=== PATIENT | female | born 1965 | race Caucasian/White ===

== ENCOUNTER 2017-05-08 06:53 | Day surgery (SDC) | payer BC ==
[2017-04-29 14:46] VITALS: BMI 29.0
[2017-05-08] MEDS ORDERED: ACETAMINOPHEN 325 MG TABLET (FP) PO PRN (08:43)
[2017-05-08] MEDS ORDERED: IBUPROFEN 400 MG TABLET (FP) PO PRN (08:43)
[2017-05-08] MEDS ORDERED: oxyCODONE HCL 5 MG TABLET PO PRN (08:43)
[2017-05-08] MEDS ORDERED: ONDANSETRON 4 MG/2 ML VIAL IVPUSH PRN (08:44)
[2017-05-08] MEDS ORDERED: IBUPROFEN 800 MG/8 ML IJ IVPB ONE (08:52)
[2017-05-08] MEDS ORDERED: SCOPOLAMINE HYDROBROMIDE 1 PATCH PATCH.TD72 ONE (08:52)
--- NOTE | 2017-05-08 09:00 | HP ---
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 She was lost to follow up and was seen in 09/2016. Her pap smear showed negative cytology, but + HPV, 16+ (18/45 negative). She underwent a colposcopy again (2017) which resulted in GARY 1 at three sites (3, 9, 12). She is here for surgical management History Source: Patient Limitations to Obtaining History: No Limitations - Past Medical History Pulmonary: No: Asthma Gastrointestinal: No: GERD ...LMP: 09/09/12 ...: No ...: 2 ...Para: 0 Heme/Onc: No: Anemia - Past Surgical History Additional Past Surgical History: Endometrial ablation 2010 - Smoking History Smoking history: Former smoker Have you smoked in the past 12 months: No If you are a former smoker, when did you quit?: 5YRS AGO - Alcohol/Substance Use Hx Alcohol Use: Yes (SOCIALLY) - Social History History of Recent Travel: No Home Medications - Allergies Allergies/Adverse Reactions: Allergies Allergy/AdvReac Type Severity Reaction Status Date / Time Penicillins AdvReac Intermediate Verified 05/08/17 07:09 - Home Medications Home Medications: Ambulatory Orders Aspirin/Acetaminophen/Caffeine [Excedrin Migraine Caplet] 1 each PO PRN PRN 07/12 Live Cell 1 tab PO DAILY 04/29/17 Review of Systems - Review of Systems Constitutional: reports: No Symptoms HENT: reports: No Symptoms Neck: reports: No Symptoms Cardiovascular: reports: No Symptoms Respiratory: reports: No Symptoms Gastrointestinal: reports: No Symptoms Genitourinary: reports: No Symptoms Musculoskeletal: reports: No Symptoms Integumentary: reports: No Symptoms Neurological: reports: No Symptoms Hematology/Lymphatic: reports: No Symptoms Psychiatric: reports: No Symptoms Physical Examination Vital Signs: Vital Signs Temperature 97.9 F 05/08/17 07:19 Pulse Rate 82 05/08/17 07:19 Respiratory Rate 18 05/08/17 07:19 Blood Pressure 141/98 05/08/17 07:19 O2 Sat by Pulse Oximetry (%) 100 05/08/17 07:20 Constitutional: Yes: Well Nourished, No Distress, Calm Cardiovascular: Yes: Regular Rate and Rhythm Respiratory: Yes: Regular, CTA Bilaterally Peripheral Pulses WNL: No Psychiatric: Yes: Alert, Oriented Assessment/Plan 51 yo with persistent GARY 1, HPV 16+ 1. Patient was counseled regarding persistent HPV infection, Reviewed options: Observation or excisional biopsy. Patient desires surgical intervention. Discussed risks of procedure including but not limited to infection, bleeding, damage to vagina, surrounding organs such as bladder or rectum. Discussed postoperative care, pelvic rest, and pain control. 2. Consents reviewed and signed 3. SCDs for DVT PPX 4. Will proceed to OR
[2017-05-08] MEDS ORDERED: DEXAMETHASONE SOD PHOSPHATE 4 MG/1 ML VIAL ONE (09:37)
[2017-05-08] MEDS ORDERED: MIDAZOLAM HCL 2 MG/2 ML SINGLE DOSE VIAL ONE (09:37)
[2017-05-08] MEDS ORDERED: PROPOFOL 20 ML ONE ×2 (09:37)
--- NOTE | 2017-05-08 10:42 | OP ---
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
[2017-05-08] MEDS ORDERED: LACTATED RINGERS SOLUTION 1,000 ML IV SCH (10:45)
--- NOTE | 2017-05-08 13:04 | OP ---
DATE OF OPERATION: 05/08/2017 PREOPERATIVE DIAGNOSES: Persistent human papillomavirus, 16; persistent cervical dysplasia. POSTOPERATIVE DIAGNOSES: Persistent human papillomavirus, 16; persistent cervical dysplasia. SURGERY: Loop electrosurgical excisional procedure and colposcopy. SURGEON: Dunia Polk MD ANESTHESIOLOGIST: Lizzy Pro MD ANESTHESIA: General. ESTIMATED BLOOD LOSS: 5. URINE OUTPUT: Not recorded. FLUIDS GIVEN: 500. INDICATION: Patient is a 51-year-old 2, para 0 with a history of GARY 1 noted in 2013 with persistent cervical dysplasia and HPV 16 positive. She was counseled regarding observation versus surgical excision. She opted for surgical excision. She was counseled regarding risks, benefits and alternatives of the procedure, including infection, bleeding, damage to surrounding organs such as the bowel, bladder, injury to vagina. She expressed understanding and was brought to the operating room. DESCRIPTION OF PROCEDURE: When anesthesia was found to be adequate, patient was prepped and draped in the normal sterile fashion, placed in the dorsal lithotomy position using Bebo stirrups. A coated medium Graves speculum was placed in the vagina. Acetic acid was placed on the patient's cervix. Three lesions at 11 o'clock, 12 o'clock and 2 o'clock were noted to have acetowhite changes. Lugol solution was applied and the lesion extended to encompass the majority of the cervix. At this point in time, a loop electrode surgical incision was performed using a size 5 mm x 1 cm in 2 pieces, a 12 o'clock piece and a 6 o'clock piece. ECC was performed thereafter. Cauterization was performed using the rollerball. Good hemostasis was noted. A small piece of Surgicel was placed in the cervical bed. All instruments removed from the patient's vagina. Patient was awoken from anesthesia and brought to recovery room in stable condition. Moni [id number] MTDD
[2017-05-08 14:36] VITALS: BP 113/66; PULSE 86; TEMP 98
--- NOTE | 2017-05-09 17:08 | PATH ---
Surgical Pathology Report Patient Name: VASU AKBAR [facility]. Rec. #: [id number] /Age/Gender: 1965 (Age: 51) / F Account: [id number] Location: [facility] Taken: 05/08/2017 Received: 05/08/2017 Reported: 05/09/2017 Physicians: Dunia Polk Specimen(s) Received A: 12:O CLOCK CERVICAL BX B: 6:O CLOCKCERVICAL BX C: ENDOCERVICAL CURETTINGS Clinical History Persistent GARY I mild cervical dysplasia Persistent HPV 16 Final Diagnosis A. CERVIX, 12:00, LOOP ELECTROSURGICAL EXCISION PROCEDURE (LEEP): CERVICAL SQUAMOUS AND ENDOCERVICAL MUCOSA WITH LOW GRADE SQUAMOUS INTRAEPITHELIAL LESION (CERVICAL INTRAEPITHELIAL NEOPLASIA 1/ GARY 1). SURGICAL RESECTION MARGINS: NEGATIVE FOR DYSPLASIA. TRANSFORMATION ZONE: PRESENT. B. CERVIX, 6:00, LOOP ELECTROSURGICAL EXCISION PROCEDURE (LEEP): CERVICAL SQUAMOUS AND ENDOCERVICAL MUCOSA WITH LOW GRADE SQUAMOUS INTRAEPITHELIAL LESION (CERVICAL INTRAEPITHELIAL NEOPLASIA 1/ GARY 1). SURGICAL RESECTION MARGINS: NEGATIVE FOR DYSPLASIA. TRANSFORMATION ZONE: PRESENT. C. ENDOCERVICAL CURETTINGS, DILATION AND CURETTAGE: FRAGMENTS OF BENIGN ENDOCERVIX AND SCANT CERVICAL SQUAMOUS MUCOSA AND FOCAL CRUSH ARTIFACT. Electronically Signed Audrey Gonzalez M.D. Gross Description A. Received in formalin labeled "cervical biopsy 12:00," is a 2.0 x 1.3 x 0.7 cm irregular portion of soft tissue, consistent with a portion of cervix. The specimen is partially surfaced by a macdonald-pink mucosa. The specimen is inked blue, serially sectioned and entirely and sequentially submitted from presumed 9:00 to 3:00 in 3 cassettes. B. Received in formalin labeled "cervical biopsy 6:00," is a 2.0 x 1.2 x 0.4 cm irregular portion of soft tissue, consistent with a portion of cervix. The specimen is partially surfaced by a macdonald-pink mucosa. The specimen is inked blue, serially sectioned and entirely and sequentially submitted from presumed 9:00 to 3:00 in 3 cassettes. C. Received in formalin labeled "endocervical curettings," is a 0.3 x 0.3 x 0.1 cm aggregate of macdonald red soft tissue fragments. The formalin is filtered and the specimen is entirely submitted in one cassette. 05/08/201705/08/2017
== END 2017-05-08 13:00 | disposition home or self-care (01) ==
LOC: JASU-SURG 06:53
PROVIDERS: ATTEND Obstetrics & Gynecology
PROC: 0UBC7ZX Excision of Cervix, Via Natural or Artificial Opening, Diagnostic (ICD-10-PCS; principal; 2017-05-08 08:30)
DX: N87.0 Mild cervical dysplasia (principal); R87.810 Cervical high risk human papillomavirus (HPV) DNA test positive
CPT/HCPCS: 86850; 86900; 86901; 88305-TC; 88307-TC; 94760